=== PATIENT | male | born 1955 | race Caucasian/White ===

== ENCOUNTER → 2018-09-27 | Outpatient (CLI) | payer OTHER ==
[~2018-09-27] MED LIST: ALLO100; ATEN100 PO; ATEN25 PO; BISA5EC; BISA5EC PO; BISACODYL; CEPH500 PO; CIPHYDOTSU LEFTEAR; CIPR500 PO; CLON1; CLON1 PO; CYCL10 PO; FENO145 PO; FURO40 PO; GABA400; HYDACE10B; HYDCHL25 PO; LOVAZA; METF500 PO; NORCO; NORT75 PO; OMEG1CAP30; OMEG1CAP30 PO; OXYACE5T PO; OXYACE7.5T PO; OXYC40ER; OXYC40ER PO; OXYC5 PO; OXYCONTIN; PRAV20 PO; PREG150 PO; RAMI5; RAMI5 PO; ROSU10TA; RXOXYACE PO; SENN; SENN187; SENNP; SYMBAX; SYMBIAX; Senna S Tablet1 EACH PO; TESTOSTERONE INJ; VENL25 PO; VENL75; VENL75 PO; VENL75ER; WARF4; WARF4 PO; WARF5; WARF5 PO; XARELTO20 MG PO; ZOLP10 PO
== END | disposition home or self-care (01) ==
LOC: LAB SHORT 08:51 → PLD 08:51
DX: L57.0 Actinic keratosis (principal)
CPT/HCPCS: 88305

== ENCOUNTER 2018-10-02 03:19 | Observation (INO) | payer OTHER ==
[~2018-10-02] VITALS: Ht 177.8 cm; Wt 122.5 kg
[2018-10-02 04:27] LABS: BASOPHILS ABSOLUTE AUTO 0.08 K/mm3 (0.00-0.23); BASOPHILS PERCENT AUTO 1 % (0-2); EOSINOPHILS ABSOLUTE AUTO 0.33 K/mm3 (0.00-0.68); EOSINOPHILS PERCENT AUTO 4 % (0-6); Hematocrit 49.4 % (37.0-53.0); Hemoglobin 16.6 g/dL (13.5-17.5); IMMATURE GRAN ABSOLUTE AUTO 0.02 K/mm3 (0.00-0.10); IMMATURE GRAN PERCENT AUTO 0 % (0-1); LYMPHOCYTES ABSOLUTE AUTO 1.43 K/mm3 (0.84-5.20); LYMPHOCYTES PERCENT AUTO 17 % (21-46); MONOCYTES ABSOLUTE AUTO 0.82 K/mm3 (0.16-1.47); MONOCYTES PERCENT AUTO 10 % (4-13); Mean Corpuscular HGB 30.2 pg (26.0-34.0); Mean Corpuscular HGB Conc 33.6 g/dL (31.5-36.5); Mean Corpuscular Volume 90 fL (80-100); Mean Platelet Volume 10.3 fL (9.1-12.4); NEUTROPHILS ABSOLUTE AUTO 5.61 K/mm3 (1.96-9.15); NEUTROPHILS PERCENT AUTO 68 % (41-73); Platelet Count 155 K/mm3 (150-400); RDW Coefficient Variation 12.8 % (11.7-14.2); RDW Standard Deviation 42.7 fL (35.1-46.3); Red Blood Cell Count 5.49 M/mm3 (4.30-5.90); White Blood Cell Count 8.29 K/mm3 (4.00-11.30)
[2018-10-02 04:45] LABS: Alanine Aminotransfer (ALT/SGP 56 U/L (12-78); Albumin, Blood 3.8 g/dL (3.4-5.0); Alk Phos 56 U/L (50-136); Anion Gap 7 mmol/L (6-16); Aspartate Aminotrans (AST/SGOT 39 U/L (12-37); Bilirubin, Total 1.5 mg/dL (0.1-1.0); Blood Urea Nitrogen 28 mg/dL (8-24); Bun/Creatinine Ratio 25.2 (12.0-20.0); CO2, Blood 28 mmol/L (21-32); Calcium, Blood 9.2 mg/dL (8.5-10.1); Chloride, Blood 102 mmol/L (98-108); Creatinine, Blood 1.11 mg/dL (0.60-1.20); Globulin, Blood 3.7 g/dL (2.2-4.0); Glomerular Filtration Rate >60 (60-); Glucose, Blood 100 mg/dL (70-99); Potassium, Blood 3.6 mmol/L (3.5-5.5); Sodium, Blood 137 mmol/L (136-145); Total Protein, Blood 7.5 g/dL (6.4-8.2)
--- NOTE | 2018-10-02 08:56 | NUR ---
PT INTO SDS VIA GURNEY FROM ER. Patient confirms NPO status and agrees with scheduled surgery. PATIENT DENIES HISTORY OF DM.
--- NOTE | 2018-10-02 09:18 | NUR ---
10/02/18 0918 Fely Rasheed History, Chart, Medications and Allergies reviewed before start of procedure.PATIENT DETERMINED TO BE ASA APPROPRIATE FOR PROPOFOL SEDATION PRIOR TO START OF PROCEDURE BY .MONITOR INTACT WITH CONTINUOUS PULSE OXIMETRY AND INTERMITTENT BP.3-LEAD EKG REVIEWED WITH PHYSICIAN PRIOR TO START OF PROCEDURE.O2 VIA N/C INTACT THROUGHOUT SEDATION/PROCEDURE.
--- NOTE | 2018-10-02 11:00 | NUR ---
PT HAD INCOMPLETE FLEX SIGMOIDOSCOPY, NOT ABLE TO RETRIEVE FOREIGN BODY. DR SOTO CONSULTED DR MONTOYA. DR MONTOYA SAW PATIENT AND WILL TAKE TO OR. VITAL SIGNS STABLE. MEDICATED WITH FENTANYL IVP PER ORDERS. WILL TRANSFER TO PACU AND WILL AWAIT FOR OR AVAILABILITY. REPORT OFF TO Artie HERRERA RN.
--- NOTE | 2018-10-02 19:54 | NUR ---
SHIFT SUMMARY PT A&OX4, VSS, S/P FOREIGN BODY REMOVAL, NO BLEEDING NOTED. PAIN MANAGED PER EMAR. MARIS PO, DENIES N&V. AMB IND TO BRP. VOIDING WELL. REPORT GIVEN TO CLARENCE HERNANDEZ.
--- NOTE | 2018-10-02 23:21 | NUR ---
PHYSICIAN COMMUNICATION DR. MONTOYA NOTIFIED OF PT REQUEST FOR HOME MEDS AND SYSTOLIC BP OF 101 AT BEDTIME BP AND PT REFUSAL OF LISINOPRIL AND ATENOLOL. ORDERS ENTERED RECIEVED.
--- NOTE | 2018-10-03 04:35 | NUR ---
SHIFT SUMMARY PT A&O X4. S/P FOREIGN BODY REMOVAL; ABD SOFT; BTX4; TOLERATING DIET WELL; NO RECTAL BLEEDING NOTED. CHRONIC PAIN MANAGED PER EMAR. PT INDEPENDENT IN ROOM. CALL LIGHT IN REACH; PT DEMONSTRATES USE.
--- NOTE | 2018-10-03 09:48 | NUR ---
DISCHARGE SUMMARY PT A&OX4, VSS, LEFT FLOOR WITH ALL PERSONAL POSSESSIONS INCLUDING DC PACKET. DC INSTRUCTIONS PROVIDED. PT REPORTED UNDERSTANDING THOSE INSTRUCTIONS. IV DC'D.
== END 2018-10-03 09:46 | disposition home or self-care (01) ==
LOC: ER 03:19 → MEDS 03:20 → SURS 03:20 → MEDS 03:20 → SURS 14:53
PROVIDERS: Emergency Medicine; Surgery; ADMIT Internal Medicine Gastroenterology
PROC: 0DCP8ZZ Extirpation of Matter from Rectum, Via Natural or Artificial Opening Endoscopic (ICD-10-PCS; principal; 2018-10-02 10:30)
DX: T18.5XXA Foreign body in anus and rectum, initial encounter (principal); I10 Essential (primary) hypertension; E11.9 Type 2 diabetes mellitus without complications; Z79.899 Other long term (current) drug therapy; Z79.84 Long term (current) use of oral hypoglycemic drugs; Z79.01 Long term (current) use of anticoagulants
CPT/HCPCS: 36415; 74177; 80053; 83690; 85025; 88300; 96374-59; 96375-59; 99285-25; A9270-GY; G0378; J0694; J1100; J1170; J2250; J2405; J2704; J3010; J7120; Q9967

== ENCOUNTER 2020-07-13 06:43 | Day surgery (SDC) | payer OTHER ==
[~2020-07-13] VITALS: Ht 177.8 cm; Wt 124.6 kg
[2020-07-13] MEDS ORDERED: OXYC10TA19 PO (07:32)
[2020-07-13] MEDS ORDERED: IMIP25 PO (07:33)
--- NOTE | 2020-07-13 07:38 | NUR ---
07/13/20 0738 Katlin Jurado V PT REPORTS CHRONIC BACK PAIN FOR WHICH THE BED HAS BEEN ADJUSTED FOR COMFORT. VSS.
--- NOTE | 2020-07-13 08:16 | NUR ---
07/13/20 0816 Nimco Prado CASE WAS ABORTED IN THE RECTUM--PATIENT HAD SOLID STOOL AND SCOPE COULD NOT ADVANCE SAFELY
== END 2020-07-13 08:44 | disposition home or self-care (01) ==
LOC: ORSCSDS 06:43
PROVIDERS: Internal Medicine Gastroenterology
PROC: 0DJD8ZZ Inspection of Lower Intestinal Tract, Via Natural or Artificial Opening Endoscopic (ICD-10-PCS; principal; 2020-07-13 08:00)
DX: Z12.11 Encounter for screening for malignant neoplasm of colon (principal); Z86.010 Personal history of colon polyps; I10 Essential (primary) hypertension; E11.9 Type 2 diabetes mellitus without complications; E66.9 Obesity, unspecified; Z68.39 Body mass index [BMI] 39.0-39.9, adult; Z79.84 Long term (current) use of oral hypoglycemic drugs; Z79.899 Other long term (current) drug therapy
CPT/HCPCS: 82947; J2405; J2704; J3010; J7120

== ENCOUNTER → 2020-11-06 | Outpatient (CLI) | payer OTHER ==
[~2020-11-06] MED LIST changes: +IMIP25 PO; +OXYC10TA19 PO
== END | disposition home or self-care (01) ==
LOC: LAB SHORT 07:30 → LAB 07:30
DX: D48.5 Neoplasm of uncertain behavior of skin (principal)
CPT/HCPCS: 88305

== ENCOUNTER 2020-12-25 14:23 | Emergency (ER) | payer OTHER ==
[~2020-12-25] VITALS: Ht 177.8 cm; Wt 122.5 kg
[2020-12-25] MEDS ORDERED: ATOR20 PO (15:13)
== END 2020-12-25 17:15 | disposition home or self-care (01) ==
LOC: ER 14:23
DX: S40.011A Contusion of right shoulder, initial encounter (principal); M25.411 Effusion, right shoulder; M25.551 Pain in right hip; I10 Essential (primary) hypertension; E11.40 Type 2 diabetes mellitus with diabetic neuropathy, unspecified; Z23 Encounter for immunization; Z79.899 Other long term (current) drug therapy; Z79.84 Long term (current) use of oral hypoglycemic drugs; Z79.01 Long term (current) use of anticoagulants; W11.XXXA Fall on and from ladder, initial encounter
CPT/HCPCS: 36415; 73030; 73502; 96374; 99283-25; A9270; J2270

== ENCOUNTER → 2024-11-14 | Outpatient (CLI) | payer MEDICARE ==
[~2024-11-14] MED LIST changes: +ATOR20 PO
== END | disposition home or self-care (01) ==
LOC: LAB SHORT 17:23 → LAB 17:23
DX: Z51.81 Encounter for therapeutic drug level monitoring (principal); Z79.899 Other long term (current) drug therapy

== ENCOUNTER → 2024-12-14 | Outpatient (CLI) | payer MEDICARE ==
[2024-12-17 11:09] LABS: 6-ACETYLMORPHINE, URN, QUANT <10 ng/mL; CODEINE, URN, QUANT <20 ng/mL; HYDROCODONE, URN, QUANT <20 ng/mL; HYDROMORPHONE, URN, QUANT <20 ng/mL; MORPHINE, URN, QUANT <20 ng/mL; NORHYDROCODONE, URN, QUANT <20 ng/mL; NOROXYCODONE, URN, QUANT 903 ng/mL; NOROXYMORPHONE, URN, QUANT 278 ng/mL; OXYCODONE, URN, QUANT 484 ng/mL; OXYMORPHONE, URN, QUANT 39 ng/mL
== END ==
LOC: LAB SHORT 14:50 → LAB 14:50
PROVIDERS: Physician Assistant
DX: Z51.81 Encounter for therapeutic drug level monitoring (principal); Z79.899 Other long term (current) drug therapy
CPT/HCPCS: G0480

== ENCOUNTER → 2025-02-08 | Outpatient (CLI) | payer OTHER ==
[2025-02-13 09:54] LABS: 6-ACETYLMORPHINE, URN, QUANT <10 ng/mL; CODEINE, URN, QUANT <20 ng/mL; HYDROCODONE, URN, QUANT <20 ng/mL; HYDROMORPHONE, URN, QUANT <20 ng/mL; MORPHINE, URN, QUANT <20 ng/mL; NORHYDROCODONE, URN, QUANT <20 ng/mL; NOROXYCODONE, URN, QUANT 2461 ng/mL; NOROXYMORPHONE, URN, QUANT 702 ng/mL; OXYCODONE, URN, QUANT 1274 ng/mL; OXYMORPHONE, URN, QUANT 81 ng/mL
== END | disposition home or self-care (01) ==
LOC: LAB 17:39 → LAB SHORT 17:39
PROVIDERS: Physician Assistant
DX: Z51.81 Encounter for therapeutic drug level monitoring (principal); Z79.899 Other long term (current) drug therapy
CPT/HCPCS: G0480